=== PATIENT | female | born 1995 | race Two or more races ===

== ENCOUNTER → 2024-04-05 | Emergency (ER) | payer OTHER ==
[~2024-04-05] VITALS: Ht 167.6 cm; Wt 63.5 kg
[~2024-04-05] MED LIST: 0.9 % SODIUM CHLORIDE 1,000 ML IV ONE; FAMOtidine 10 MG/ML (4ML VIAL) IV ONE; ONDANSETRON HCL 2 MG/ML VIAL IV ONE
[2024-04-05 11:22] LABS: HEMATOCRIT 37.6 % (36.0-45.00); HEMOGLOBIN 12.9 g/dL (12.0-15.00); MEAN CELL VOLUME 90.7 fL (80.00-100.00); MEAN CORPUSCULAR HEMOGLOBIN 31.1 pg (27.00-32.0); MEAN CORPUSCULAR HGB CONC 34.3 g/dl (32.0-36.0); PLATELET COUNT 148 K/uL (150-450); RED BLOOD COUNT 4.15 M/uL (4.00-6.00); RED CELL DISTRIBUTION WIDTH 12.3 % (11.5-14.5)
== END | disposition home or self-care (01) ==
LOC: ER 08:58
PROVIDERS: General Practice
DX: R53.81 Other malaise (principal); J00 Acute nasopharyngitis [common cold]; A90 Dengue fever [classical dengue]; Z20.822 Contact with and (suspected) exposure to COVID-19